=== PATIENT | male | born 1995 | race Caucasian/White ===

== ENCOUNTER 2023-06-16 22:14 | Emergency (ER) | payer OTHER, SELFPAY ==
[2023-06-16 22:28] VITALS: PULSE 103; RESP 15; O2SAT 96
[2023-06-16 22:29] VITALS: BP 113/62; PULSE 113; RESP 16; TEMP 38.6; O2SAT 96; BMI 25.7
[2023-06-16 22:30] VITALS: BP 114/59; PULSE 102; RESP 16; O2SAT 96
--- NOTE | 2023-06-16 22:33 | DI.RAD.S_ITS ---
PROCEDURE: XR CHEST 1V INDICATIONS: chest pain TECHNIQUE: One view of the chest was acquired. COMPARISON: None. FINDINGS: Surgical changes and devices: None. Lungs and pleura: Lungs are clear. No pleural effusions or pneumothorax. Mediastinum: Mediastinal contours appear normal. Heart size is normal. Bones and chest wall: No suspicious bony lesions. Overlying soft tissues appear unremarkable. IMPRESSION: No acute cardiopulmonary abnormality is seen. Dictated by: Mathew Hernandez M.D. on 06/16/2023 at 22:48 Approved by: Mathew Hernandez M.D. on 06/16/2023 at 22:48
[2023-06-16 22:45] LABS: Add Manual Diff / Slide Review NO; Basophils Absolute Auto 0 /uL (0-100); Basophils Percent Auto 0.2 % (0-2); Eosinophils Absolute Auto 0 /uL (0-450); Eosinophils Percent Auto 0.1 % (2-4); Hematocrit 44.6 % (41-53); Lymphocytes Absolute Auto 300 /uL (1100-4500); Mean Corpuscular HGB Conc 33.7 % (30-36); Mean Corpuscular Hemoglobin 29.3 PG (26-34); Mean Corpuscular Volume 86.9 fL (80-100); Monocytes Absolute Auto 500 /uL (0-900); Monocytes Percent Auto 6.3 % (3-14); Neutrophils Absolute Auto 7900 /uL (1500-7000); Neutrophils Percent Auto 90.4 % (50-75); Platelet Count 223 X10^3/uL (150-400); Red Blood Cell Count 5.14 X10^6/uL (4.5-5.9); Red Cell Distribution Width 13.1 % (11.6-14.8); White Blood Cell Count 8.7 X10^3/uL (4.5-11.0)
[2023-06-16] MEDS: SODIUM CHLORIDE 0.9% 1,000 ML 1000 ML IV (22:47)
--- NOTE | 2023-06-16 22:52 | PC.NURSE ---
Patient reports passing out 3 times today after attempting to get up to use the restroom. Reports hit head and right knee. Contusion above left eye and on right knee. No lacerations or open wounds noted.
[2023-06-16 22:55] LABS: Alanine Aminotransferase 20 IU/L (<50); Albumin 4.2 g/dL (3.5-5.0); Albumin Globulin Ratio 1.4 (1.0-2.8); Alkaline Phosphatase 51 U/L (38-126); BUN Creatinine Ratio 23.7 (6-22); Bilirubin Total 0.6 mg/dL (0.2-1.3); Blood Urea Nitrogen 22 mg/dL (9-20); Carbon Dioxide 20 mmol/L (22-32); Chloride 105 mmol/L (98-107); Estimated Glomerular Filt Rate > 60 mL/min (>60); Glucose 129 mg/dL (70-100); Lipase 36 U/L (23-300); Magnesium 1.6 mg/dL (1.6-2.3); Potassium 3.7 mmol/L (3.4-5.1); Sodium 136 mmol/L (137-145); Total Protein 7.2 g/dL (6.3-8.2)
[2023-06-16 23:00] VITALS: BP 116/56; PULSE 90; RESP 15; O2SAT 98
[2023-06-16 23:21] LABS: INR 1.3 (0.9-1.3); Prothrombin Time 14.4 SECONDS (9.4-12.5)
[2023-06-16 23:23] LABS: Influenza A - CEPHEID Flu A NEGATIVE (NEGATIVE); Influenza B - CEPHEID Flu B NEGATIVE (NEGATIVE); PTT Partial Thromboplastin Tim 29 SECONDS (25.1-36.5); Respiratory Syncytial Virus Negative (Negative)
[2023-06-16 23:26] LABS: Lipase 36 U/L (23-300)
[2023-06-16 23:27] LABS: Lactate (Lactic Acid) 1.9 mmol/L (0.7-2.1)
[2023-06-16 23:30] VITALS: BP 120/58; PULSE 90; RESP 14; TEMP 37.7; O2SAT 99
[2023-06-16 23:37] LABS: COVID-19 CEPHEID 4-PLEX PCR Negative (Negative)
[2023-06-16 23:44] LABS: Procalcitonin 0.21 ng/mL (<0.5)
[2023-06-17] VITALS (18 sets, daily range): BP systolic 70–143; BP diastolic 33–66; PULSE 80–109; RESP 15–22; TEMP 37.3; O2SAT 94–100
[2023-06-17] MEDS: SODIUM CHLORIDE 0.9% 1,000 ML 1000 ML IV (00:48)
[2023-06-17 01:48] LABS: Adenovirus F 40/41 Not Detected (Not Detect); Astrovirus Not Detected (Not Detect); Campylobacter Not Detected (Not Detect); Clostridium difficile toxin AB Not Detected (Not Detect); Cryptosporidium Not Detected (Not Detect); Cyclospora cayetanensis Not Detected (Not Detect); Entamoeba histolytica Not Detected (Not Detect); Enteroaggregative E.coli Not Detected (Not Detect); Enteropathogenic E.coli Not Detected (Not Detect); Enterotoxigenic E.coli It/st Not Detected (Not Detect); Giardia lamblia Not Detected (Not Detect); Norovirus GI/GII Detected (Not Detect); Plesiomonsa shigelloides Not Detected (Not Detect); Rotavirus A Not Detected (Not Detect); Salmonella Not Detected (Not Detect); Sapovirus Not Detected (Not Detect); Shiga-like toxin-prod E.coli Not Detected (Not Detect); Shigella/Enteroinvasive E.coli Not Detected (Not Detect); Vibrio Not Detected (Not Detect); Vibrio cholerae Not Detected (Not Detect); Yersinia enterocolitica Not Detected (Not Detect)
[2023-06-17] MEDS: LACTATED RINGERS 1,000 ML 1000 ML IV (03:51)
--- NOTE | 2023-06-17 05:32 | ED.NAVMDI ---
HPI - Nausea/Vomiting/Diarrhea General Chief complaint: Nausea/Vomiting/Diarrhea Stated complaint: diarrhea, keeps passing out Time Seen by Provider: 06/16/23 23:45 Source: patient Mode of arrival: Family Vehicle History of Present Illness HPI Narrative: 28-year-old male with recent contact with somebody that had a gastrointestinal illness presenting with nausea vomiting diarrhea and multiple episodes of syncope. He has had nausea and vomiting and diarrhea for 1 day. Tried to go to work, found that he was having syncopal episodes when he tried to stand. Has some mild diffuse abdominal pain that is crampy in character has some low-grade fevers, no chest pain or shortness of breath no family history of sudden . He is previously healthy. Related Data Previous Rx's Medication Instructions Recorded ondansetron 4 mg disintegrating 4 mg PO Q6H PRN nausea and 06/17/23 tablet vomiting #14 tabs Allergies Allergy/AdvReac Type Severity Reaction Status Date / Time No Known Drug Allergies Allergy Verified 06/16/23 22:33 Patient History Social History Smoking Status: Never smoker Smoking Status: Never smoker Substance Use Type: does not use Exam Initial Vital Signs Initial Vital Signs: Vital Signs Pulse Rate 103 H 06/16/23 22:28 Respiratory Rate 15 06/16/23 22:28 Pulse Oximetry 96 06/16/23 22:28 Const General: healthy appearing and No acute distress [facility] Head: normocephalic and atraumatic Mouth: moist mucous membranes Neck Neck: supple Resp Effort & Inspection: normal respiratory effort Auscultation: clear to auscultation bilaterally Cardio Other: Regular rhythm and rate no murmur rub or gallop GI Inspection: normal to inspection Palpation: soft and No tender Auscultation: hyperactive bowel sounds Skin General: dry skin and warm Neuro General: patient alert, patient oriented x3 and moves all extremities Course Orders Ordered: ED Orders 06/16/23 22:31 Complete Blood Count AUTO DIFF Stat Comprehensive Metabolic Panel Stat Covid-19 + FLU A/B + RSV - PCR Stat Lactate (Lactic Acid) Stat Lipase Stat Lipase Stat Magnesium Stat PTT Partial Thromboplastin Live Stat Procalcitonin Stat Prothrombin Time INR Stat 06/16/23 22:33 XR chest 1V Stat EKG-12 Lead Stat 06/16/23 23:11 Blood Culture Stat 06/17/23 00:01 GI Panel (Film Array) Stat Ondansetron HCl (Ondansetron 4 Mg/2 Ml Inj) 4 mg IV NOW PRN PRN Reason: Nausea And Vomiting Ondansetron HCl (Ondansetron 4 Mg Odt) 4 mg SL NOW PRN PRN Reason: Nausea And Vomiting Discontinued Medications Sodium Chloride (Normal Saline 0.9%) 1,000 mls @ 1,000 mls/hr IV BOLUS ONE Stop: 06/16/23 23:44 Last Infusion: 06/16/23 23:43 Dose: Infused Documented By: Admin: 06/16/23 22:47 Dose: 1,000 mls/hr Documented By: SB Sodium Chloride (Normal Saline 0.9%) 1,000 mls @ 1,000 mls/hr IV BOLUS ONE Stop: 06/17/23 01:30 Last Infusion: 06/17/23 01:50 Dose: Infused Documented By: ROSA MARIA Admin: 06/17/23 00:48 Dose: 1,000 mls/hr Documented By: GARRY Lactated Ringer's (Lactated Ringers) 1,000 mls @ 1,000 mls/hr IV BOLUS ONE Stop: 06/17/23 04:05 Last Admin: 06/17/23 03:51 Dose: 1,000 mls/hr Documented By: ROSA MARIA Reevaluation(s) Reevaluation #1: After 2 L of crystalloid, the patient is still orthostatic and still symptomatic. I will give him another L Vital Signs Vital signs: Vital Signs - 8 hr 06/16/23 22:28 06/16/23 22:29 06/16/23 22:30 Temperature 101.4 F H Pulse Rate 103 H 113 H Pulse Rate [Orthostatic Lying] Pulse Rate [Orthostatic Sitting] Pulse Rate [Orthostatic Standing] Respiratory Rate 15 16 Blood Pressure 113/62 114/59 L Blood Pressure [Orthostatic Lying] Blood Pressure [Orthostatic Sitting] Blood Pressure [Orthostatic Standing] Pulse Oximetry 96 96 Oxygen Delivery Method Room Air 06/16/23 22:30 06/16/23 23:00 06/16/23 23:00 Temperature Pulse Rate 102 H 90 Pulse Rate [Orthostatic Lying] Pulse Rate [Orthostatic Sitting] Pulse Rate [Orthostatic Standing] Respiratory Rate 16 15 Blood Pressure 116/56 L Blood Pressure [Orthostatic Lying] Blood Pressure [Orthostatic Sitting] Blood Pressure [Orthostatic Standing] Pulse Oximetry 96 98 Oxygen Delivery Method 06/16/23 23:30 06/16/23 23:30 06/17/23 00:01 Temperature 99.9 F H Pulse Rate 90 103 H Pulse Rate [Orthostatic Lying] Pulse Rate [Orthostatic Sitting] Pulse Rate [Orthostatic Standing] Respiratory Rate 14 Blood Pressure 120/58 L Blood Pressure [Orthostatic Lying] Blood Pressure [Orthostatic Sitting] Blood Pressure [Orthostatic Standing] Pulse Oximetry 99 98 Oxygen Delivery Method 06/17/23 00:02 06/17/23 00:02 06/17/23 00:30 Temperature Pulse Rate 98 H 93 H Pulse Rate [Orthostatic Lying] Pulse Rate [Orthostatic Sitting] Pulse Rate [Orthostatic Standing] Respiratory Rate 16 Blood Pressure 115/54 L Blood Pressure [Orthostatic Lying] Blood Pressure [Orthostatic Sitting] Blood Pressure [Orthostatic Standing] Pulse Oximetry 98 98 Oxygen Delivery Method Room Air 06/17/23 00:30 06/17/23 01:00 06/17/23 01:00 Temperature Pulse Rate 82 Pulse Rate [Orthostatic Lying] Pulse Rate [Orthostatic Sitting] Pulse Rate [Orthostatic Standing] Respiratory Rate 16 Blood Pressure 111/53 L 122/60 Blood Pressure [Orthostatic Lying] Blood Pressure [Orthostatic Sitting] Blood Pressure [Orthostatic Standing] Pulse Oximetry 98 Oxygen Delivery Method Room Air 06/17/23 01:30 06/17/23 01:30 06/17/23 02:00 Temperature Pulse Rate 81 Pulse Rate [Orthostatic Lying] Pulse Rate [Orthostatic Sitting] Pulse Rate [Orthostatic Standing] Respiratory Rate 20 Blood Pressure 141/66 H 143/64 H Blood Pressure [Orthostatic Lying] Blood Pressure [Orthostatic Sitting] Blood Pressure [Orthostatic Standing] Pulse Oximetry 98 Oxygen Delivery Method Room Air 06/17/23 02:00 06/17/23 02:30 06/17/23 02:33 Temperature Pulse Rate 86 95 H Pulse Rate [Orthostatic Lying] Pulse Rate [Orthostatic Sitting] Pulse Rate [Orthostatic Standing] Respiratory Rate 20 19 Blood Pressure 110/51 L Blood Pressure [Orthostatic Lying] Blood Pressure [Orthostatic Sitting] Blood Pressure [Orthostatic Standing] Pulse Oximetry 98 98 Oxygen Delivery Method Room Air Room Air 06/17/23 02:33 06/17/23 02:35 06/17/23 02:35 Temperature Pulse Rate 86 97 H Pulse Rate [Orthostatic Lying] Pulse Rate [Orthostatic Sitting] Pulse Rate [Orthostatic Standing] Respiratory Rate 18 15 Blood Pressure 99/52 L Blood Pressure [Orthostatic Lying] Blood Pressure [Orthostatic Sitting] Blood Pressure [Orthostatic Standing] Pulse Oximetry 98 98 Oxygen Delivery Method Room Air Room Air 06/17/23 02:38 06/17/23 02:38 06/17/23 02:40 Temperature Pulse Rate 97 H Pulse Rate [Orthostatic Lying] 85 Pulse Rate [Orthostatic Sitting] 94 H Pulse Rate [Orthostatic Standing] 109 H Respiratory Rate 15 Blood Pressure 70/33 L Blood Pressure [Orthostatic Lying] 110/51 L Blood Pressure [Orthostatic Sitting] 99/52 L Blood Pressure [Orthostatic Standing] 70/33 L Pulse Oximetry 100 Oxygen Delivery Method Room Air 06/17/23 03:00 06/17/23 03:00 06/17/23 03:47 Temperature Pulse Rate 85 86 Pulse Rate [Orthostatic Lying] Pulse Rate [Orthostatic Sitting] Pulse Rate [Orthostatic Standing] Respiratory Rate 20 19 Blood Pressure 110/54 L Blood Pressure [Orthostatic Lying] Blood Pressure [Orthostatic Sitting] Blood Pressure [Orthostatic Standing] Pulse Oximetry 95 94 Oxygen Delivery Method Room Air Room Air 06/17/23 03:48 06/17/23 03:48 06/17/23 04:00 Temperature Pulse Rate 85 Pulse Rate [Orthostatic Lying] Pulse Rate [Orthostatic Sitting] Pulse Rate [Orthostatic Standing] Respiratory Rate 16 Blood Pressure 109/53 L 106/54 L Blood Pressure [Orthostatic Lying] Blood Pressure [Orthostatic Sitting] Blood Pressure [Orthostatic Standing] Pulse Oximetry 95 Oxygen Delivery Method Room Air 06/17/23 04:00 06/17/23 04:30 06/17/23 04:30 Temperature Pulse Rate 80 80 Pulse Rate [Orthostatic Lying] Pulse Rate [Orthostatic Sitting] Pulse Rate [Orthostatic Standing] Respiratory Rate 19 22 Blood Pressure 107/51 L Blood Pressure [Orthostatic Lying] Blood Pressure [Orthostatic Sitting] Blood Pressure [Orthostatic Standing] Pulse Oximetry 95 95 Oxygen Delivery Method Room Air Room Air 06/17/23 05:00 06/17/23 05:00 Temperature Pulse Rate 81 Pulse Rate [Orthostatic Lying] Pulse Rate [Orthostatic Sitting] Pulse Rate [Orthostatic Standing] Respiratory Rate 21 Blood Pressure 108/54 L Blood Pressure [Orthostatic Lying] Blood Pressure [Orthostatic Sitting] Blood Pressure [Orthostatic Standing] Pulse Oximetry 95 Oxygen Delivery Method Room Air MDM - Nausea/Vomiting/Diarrhea Lab Data Lab results narrative: CBC is unremarkable, CMP shows an elevated BUN and creatinine ratio, stool panel shows norovirus, urinalysis is unremarkable 06/16/23 22:31 06/16/23 22:31 Labs: Lab Results 06/16/23 06/16/23 06/17/23 Range/Units 22:31 22:31 00:01 WBC 8.7 (4.5-11.0) X10^3/uL RBC 5.14 (4.5-5.9) X10^6/uL Hgb 15.0 (13.5-17.5) g/dL Hct 44.6 (41-53) % MCV 86.9 (80-100) fL MCH 29.3 (26-34) PG MCHC 33.7 (30-36) % RDW 13.1 (11.6-14.8) % Plt Count 223 (150-400) X10^3/uL Neut % (Auto) 90.4 H (50-75) % Lymph % (Auto) 3.0 L (25-40) % Castro % (Auto) 6.3 (3-14) % Eos % (Auto) 0.1 L (2-4) % Baso % (Auto) 0.2 (0-2) % Neut # (Auto) 7900 H (9736-7421) /uL Lymph # (Auto) 300 L (3973-1778) /uL Castro # (Auto) 500 (0-900) /uL Eos # (Auto) 0 (0-450) /uL Baso # (Auto) 0 (0-100) /uL PT 14.4 H (9.4-12.5) SECONDS INR 1.3 (0.9-1.3) APTT 29 (25.1-36.5) SECONDS Sodium 136 L (137-145) mmol/L Potassium 3.7 (3.4-5.1) mmol/L Chloride 105 (98-107) mmol/L Carbon Dioxide 20 L (22-32) mmol/L BUN 22 H (9-20) mg/dL Creatinine 0.93 (0.66-1.25) mg/dL Estimated GFR > 60 (>60) mL/min BUN/Creatinine Ratio 23.7 H (6-22) Glucose 129 H (70-100) mg/dL Lactate 1.9 (0.7-2.1) mmol/L Calcium 9.0 (8.4-10.2) mg/dL Magnesium 1.6 (1.6-2.3) mg/dL Total Bilirubin 0.6 (0.2-1.3) mg/dL AST TNP ALT 20 (<50) IU/L Alkaline Phosphatase 51 (38-126) U/L Total Protein 7.2 (6.3-8.2) g/dL Albumin 4.2 (3.5-5.0) g/dL Globulin 3.0 (1.7-4.1) g/dL Albumin/Globulin Ratio 1.4 (1.0-2.8) Lipase 36 36 (23-300) U/L Procalcitonin 0.21 (<0.5) ng/mL Stl C. cayetanensis PCR Not detected (Not Detect) Stool Rotavirus (PCR) Not detected (Not Detect) Stool Adenovirus (PCR) Not detected (Not Detect) Stool Astrovirus (PCR) Not detected (Not Detect) Stool Cryptosporidium PCR Not detected (Not Detect) Stl E.coli Shiga Tox PCR Not detected (Not Detect) St Sh/Enteroin Ecoli PCR Not detected (Not Detect) Stl Enterotoxigenic E PCR Not detected (Not Detect) Stool EPEC (PCR) Not detected (Not Detect) Stl E. histolytica PCR Not detected (Not Detect) Stool Giardia Lamblia PCR Not detected (Not Detect) Stool Sapovirus (PCR) Not detected (Not Detect) Stl P. shigelloides PCR Not detected (Not Detect) St Y.enterocolitica PCR Not detected (Not Detect) Stool Vibrio (PCR) Not detected (Not Detect) Stl Vibrio cholerae PCR Not detected (Not Detect) Stl Enteroaggr Ecoli PCR Not detected (Not Detect) Stl Norovirus GI/GII PCR Detected (Not Detect) Campylobacter (PCR) Not detected (Not Detect) C. difficile Tox (PCR) Not detected (Not Detect) SARS-CoV-2 (PCR) Negative (Negative) Influenza A (RT-PCR) Flu a negative (NEGATIVE) Influenza B (RT-PCR) Flu b negative (NEGATIVE) RSV (PCR) Negative (Negative) Salmonella (PCR) Not detected (Not Detect) Urine Dip Bedside Urine Glucose Negative Bedside Urine Bilirubin + 1 Bedside Urine Ketone - Negative Urine Specific [place] 1.025 Bedside Urine Occult Blood - Negative Bedside Urine pH 6.0 Bedside Urine Protein - Negative Bedside Urine Urobilinogen - Negative Bedside Urine Nitrite - Negative Bedside Urine Leukocytes - Negative Esterase ECG Data Interpretation: EKG shows normal sinus rhythm at 96 normal MD interval no pre-excitation no chamber hypertrophy MDM Narrative Medical decision making narrative: A 28-year-old man with nausea vomiting diarrhea and recurrent syncope. He is otherwise healthy, physical exam is reassuring I think his multiple episodes of syncope in this context are related to hypovolemia and possibly vasovagal response. He was feeling better after crystalloid and Zofran in the emergency department. I do not think that his symptoms are related to a dysrhythmia or structural cardiac abnormality. I do not think that anything in his gastroenteritis requires hospitalization at this point. It was discharged home with a prescription for Zofran, the patient lives on [facility] and I actually did certified personal finance counselor that he might want to stay on [facility] for awhile today just to make sure that his symptoms have stabilized. Discharge Plan Departure Patient Disposition: Home Clinical Impression: Gastroenteritis, Vomiting and diarrhea, Nausea vomiting and diarrhea Syncope Qualifiers: Syncope type: unspecified Qualified Code(s): R55 - Syncope and collapse Instructions: Norovirus Infection Activity Restrictions/Additional Instructions: Emergency department workup today shows that you have norovirus. This is a highly contagious intestinal virus which is self-limited which is to say it will resolve on its own in 3-5 days. In the meantime you need to get adequate fluids, frequent small amounts of fluids that contain some electrolytes will be helpful. I have sent a prescription for ondansetron that he can use as needed for nausea and vomiting. You should plan to rest for 2-3 days. You should be careful about washing her hands after using the bathroom try not to share the bathroom or eating utensils as this is a very contagious condition. With respect to fainting I think that is from volume loss and also nausea which can sometimes induced this kind of a response. If you are feeling faint, I recommend that you lie down immediately, being horizontal will help keep you from passing out. Although we have made every effort to ensure that you are safe for discharge, if your symptoms are getting worse, or if you are having other acute symptoms such as chest pain shortness of breath high fevers, abdominal pain or uncontrolled vomiting recheck in the emergency department. Return to the emergency department if you have bloody diarrhea or increasing abdominal pain. Prescriptions: New ondansetron 4 mg tablet,disintegrating 4 mg PO Q6H PRN (Reason: nausea and vomiting) Qty: 14 0RF Stand Alone Forms: Patient Portal/API
[2023-06-19 16:16] LABS: HEMOLYSIS 20 (0-50)
[2023-06-19 16:17] LABS: Aspartate Aminotransferase 35 IU/L (17-59)
== END 2023-06-17 06:00 | disposition home or self-care (01) ==
PROVIDERS: Emergency Provider Emergency Medicine
DX: K52.9 Noninfective gastroenteritis and colitis, unspecified (principal); R11.2 Nausea with vomiting, unspecified; R10.9 Unspecified abdominal pain; R55 Syncope and collapse; Z20.822 Contact with and (suspected) exposure to COVID-19
CPT/HCPCS: 0241U; 36415; 71045; 80053; 81003; 83605; 83690; 83735; 84145; 85025; 85610; 85730; 87040; 87507; 93005; 96360; 96361; 99284